=== PATIENT | female | born 1985 | race Caucasian/White ===

== ENCOUNTER 2017-11-15 13:11 | Emergency (ER) | payer BC, SELFPAY ==
[2017-11-15 13:31] VITALS: BP 126/72; PULSE 102; RESP 18; TEMP 36.9; O2SAT 97; BMI 23.9
--- NOTE | 2017-11-15 13:37 | HMH.EDUTC ---
[facility] [place] Disposition Clinical Impression: Cough in adult Disposition: Home, Self-Care Condition on Discharge: Good Additional Instructions: Rest increase fluids Follow-up with primary care this week if no improvement If symptoms worsen or do not improve return or be seen in the ER Prescriptions: Benzonatate [Tessalon Perle 100mg Cap] 100 mg PO BID 5 Days #10 cap Referrals: Néstor Ramirez MD [Primary Care Provider] - Time of Disposition: 14:11 Medical Decision Making Vital Signs: 11/15/17 13:31 Temperature 98.4 F Temperature Source Temporal Artery Scan Pulse Rate [Right Brachial] 102 H Respiratory Rate 18 Blood Pressure [Right Arm] 126/72 Blood Pressure Mean [Right Arm] 90 Blood Pressure Source [Right Arm] Automatic Cuff Blood Pressure Position [Right Arm] Sitting 02 Sat by Pulse Oximetry 97 Oxygen Delivery Method Room Air - Lab Data Lab Results 11/15/17 13:39: Influenza Type A Ag Negative, Influenza Type B Ag Negative - Fabián Inquiry Pt receiving controlled substance: No [facility] [place] HPI - General Chief complaint: Fever Stated complaint: roa.fever,cough Time Seen by Provider: 11/15/17 13:37 Mode of Arrival: Ambulatory Source of Information: Patient Limitations: No Limitations Description of Symptoms (Recalled from Triage Doc. by RN): C/O SORE THROAT AND BODYACHES X1 WEEK HEENT Symptoms (Recalled from RN notes): Yes (SORE THROAT) Resp Symptoms (Recalled from RN notes): No Skin Symptoms (Recalled from RN notes): No MS Symptoms (Recalled from RN notes): Yes (BODYACHES) Functional Status (Recalled from RN notes): N/A - History of Present Illness Provider Complaint: 32-year-old female presents for headache, cough, and fever for 1 week. - Related Data Previous Rx's Medication Instructions Recorded Benzonatate [Tessalon Perle 100mg 100 mg PO BID 5 Days #10 cap 11/15/17 Cap] Allergies Allergy/AdvReac Type Severity Reaction Status Date / Time Penicillins Allergy Mild I-HIVES Verified 11/15/17 13:34 cephalexin [From KEFLEX] Allergy Unknown Verified 11/15/17 13:34 codeine Allergy Unknown I-HIVES Verified 11/15/17 13:34 - Worker's Comp Is this a Worker's Comp case?: No [facility] History I have reviewed the patient's past medical history: Yes Medical History: Denies:: Cancer, Diabetes Mellitus Type 1, Diabetes Mellitus Type 2, MRSA Amputation: No - Social History Smoking Status: Current every day smoker Tobacco Type: cigarettes Alcohol Intake: never - Psychiatric History Expresses thoughts of harming self/others: None Suicide Plan Description: No Plan ROS Obtained: Yes All systems reviewed & no additional complaints - Constitutional Constitutional: Reports system reviewed and no additional complaints, except as docu, Reports fever(s) - Eyes Eyes: Reports system reviewed and no additional complaints, except as docu - ENT Ears, Nose, Mouth, and Throat: Reports system reviewed and no additional complaints, except as docu - Cardiovascular Cardiovascular: Reports system reviewed and no additional complaints, except as docu - Respiratory Respiratory: Yes system reviewed and no additional complaints, except as docu, Yes chest congestion, Yes cough - Gastrointestinal Gastrointestingal: Reports: system reviewed and no additional complaints, except as docu - Musculoskeletal Musculoskeletal: Reports system reviewed and no additional complaints, except as docu - Integumentary/Breasts Skin/Breast: Reports system reviewed and no additional complaints, except as docu - Neurologic Neurologic: Reports system reviewed and no additional complaints, except as docu - Endocrine Endocrine: Reports system reviewed and no additional complaints, except as docu - Hematologic/Lymphatic Henatologic/Lymphatic: Reports system reviewed and no additional complaints, except as docu - Allergic/Immunologic Allergic/Immunologic: Reports system reviewed and no additional complaints, except as
--- NOTE | 2017-11-15 13:40 | ED_ITS ---
[facility] [place] Impression: Cough in adult Disposition: Home, Self-Care Condition on Discharge: Good Additional Instructions: Rest increase fluids Follow-up with primary care this week if no improvement If symptoms worsen or do not improve return or be seen in the ER Prescriptions: Benzonatate [Tessalon Perle 100mg Cap] 100 mg PO BID 5 Days #10 cap Referrals: Néstor Ramirez MD [Primary Care Provider] - Time of Disposition: 14:11 Medical Decision Making Vital Signs: 11/15/17 13:31 Temperature 98.4 F Temperature Source Temporal Artery Scan Pulse Rate [Right Brachial] 102 H Respiratory Rate 18 Blood Pressure [Right Arm] 126/72 Blood Pressure Mean [Right Arm] 90 Blood Pressure Source [Right Arm] Automatic Cuff Blood Pressure Position [Right Arm] Sitting 02 Sat by Pulse Oximetry 97 Oxygen Delivery Method Room Air - Lab Data Lab Results 11/15/17 13:39: Influenza Type A Ag Negative, Influenza Type B Ag Negative - Fabián Inquiry Pt receiving controlled substance: No [facility] [place] - General Chief complaint: Fever Stated complaint: roa.fever,cough Time Seen by Provider: 11/15/17 13:37 Mode of Arrival: Ambulatory Source of Information: Patient Limitations: No Limitations Description of Symptoms (Recalled from Triage Doc. by RN): C/O SORE THROAT AND BODYACHES X1 WEEK HEENT Symptoms (Recalled from RN notes): Yes (SORE THROAT) Resp Symptoms (Recalled from RN notes): No Skin Symptoms (Recalled from RN notes): No MS Symptoms (Recalled from RN notes): Yes (BODYACHES) Functional Status (Recalled from RN notes): N/A - History of Present Illness Provider Complaint: 32-year-old female presents for headache, cough, and fever for 1 week. - Related Data Previous Rx's Medication Instructions Recorded Benzonatate [Tessalon Perle 100mg 100 mg PO BID 5 Days #10 cap 11/15/17 Cap] Allergies Allergy/AdvReac Type Severity Reaction Status Date / Time Penicillins Allergy Mild I-HIVES Verified 11/15/17 13:34 cephalexin [From KEFLEX] Allergy Unknown Verified 11/15/17 13:34 codeine Allergy Unknown I-HIVES Verified 11/15/17 13:34 - Worker's Comp Is this a Worker's Comp case?: No [facility] History I have reviewed the patient's past medical history: Yes Medical History: Denies:: Cancer, Diabetes Mellitus Type 1, Diabetes Mellitus Type 2, MRSA Amputation: No - Social History Smoking Status: Current every day smoker Tobacco Type: cigarettes Alcohol Intake: never - Psychiatric History Expresses thoughts of harming self/others: None Suicide Plan Description: No Plan ROS Obtained: Yes All systems reviewed & no additional complaints - Constitutional Constitutional: Reports system reviewed and no additional complaints, except as docu, Reports fever(s) - Eyes Eyes: Reports system reviewed and no additional complaints, except as docu - ENT Ears, Nose, Mouth, and Throat: Reports system reviewed and no additional complaints, except as docu - Cardiovascular Cardiovascular: Reports system reviewed and no additional complaints, except as docu - Respiratory Respiratory: Yes system reviewed and no additional complaints, except as docu, Yes chest congestion, Yes cough - Gastrointestinal Gastrointestingal: Reports: system reviewed and no additional complaints,
[2017-11-15 14:02] LABS: UTC Influenza A Antigen Negative (Negative); UTC Influenza B Antigen Negative (Negative)
[2017-11-15 14:20] VITALS: BP 123/76; PULSE 87; RESP 20; TEMP 36.6
== END 2017-11-15 14:20 | disposition home or self-care (01) ==
PROVIDERS: Emergency Provider Nurse Practitioner Family; Family Provider Emergency Medicine; PCP Emergency Medicine
DX: R05 Cough (principal); F17.210 Nicotine dependence, cigarettes, uncomplicated; Z88.0 Allergy status to penicillin; Z88.6 Allergy status to analgesic agent
CPT/HCPCS: 87804; 99202

== ENCOUNTER → 2018-07-02 11:42 | Outpatient (CLI) | payer BC, SELFPAY ==
--- NOTE | 2018-07-02 11:46 | XR_ITS ---
XR lumbar spine 2-3V Ordering Physician: Tran Frederick Patient Age: 33 years: Female HISTORY: ITS.REASON: pain Low back pain now for several years. TECHNIQUE: AP lateral view lumbar spine. COMPARISON :Five-view lumbar spine series 02/17/2017. FINDINGS No significant new findings. We again see the mild disc space narrowing at L5/S1 posteriorly. Similar to the previous study possibly incrementally more evident today. Pedicles, transverse processes intact.. SI joints unremarkable. IUD in place. The large amount stool seen throughout the right colon with stool and gas transverse colon. . IMPRESSION: ------- 1. No acute findings lumbar spine. There is Suggestion of minimal narrowing at posterior aspect of L5/S1 disc which may reflect early degenerative disc changes. This feature perhaps very very slightly more evident then 2017 on final review...
== END ==
PROVIDERS: PCP Emergency Medicine; Visit Provider Nurse Practitioner Family
DX: M54.5 Low back pain (principal)
CPT/HCPCS: 72100

== ENCOUNTER 2018-07-23 14:08 | Outpatient (RCR) | payer BC, SELFPAY ==
--- NOTE | 2018-07-23 15:05 | HMH.PTOPEV ---
PT Outpatient Evaluation Rehab PT Outpatient Evaluation Start: 07/23/18 14:47 Freq: Status: Active Protocol: Document 07/23/18 14:48 EMILIANOMARQUISE (Rec: 07/23/18 15:04 JORDI [id number]) Electronically Signed By Soy Tolentino, PT 07/23/18 14:48 Outpatient Therapy Subjective History Subjective History Patient is a 33 year old female presenting to outpatient PT with reports of chronic low back pain starting approximately 5 years ago after giving . She recieved a cortisone injection approximately 2 years ago which provided 1 year of total symptom relief. Most recent diagnostics indicate mild degenerative changes at L5/S1. Pt reports MRI 2 years ago that indicated L 4/5 disc bulges and SI OA, no reports to comfirm. Chief Complaint Pain Spasms Stiff Paresthesia Symptom Type Ache Throb Sharp Dull Stabbing Burning Numbness Tingling Shooting Symptoms Relieved By Rest/Positioning Symptoms Aggravated By Sitting Standing Bending/Stooping Physical Activity Twisting Walking Lifting Prior Functional Limitations Reaching Lifting Housework Driving Sleeping Standing Sitting Squatting Recreation Activity Walking Stairs Balance Bending/Stooping Current Functional Limitations Reaching Lifting Housework Driving
== END 2018-07-23 14:09 | disposition home or self-care (01) ==
LOC: PT 14:08
PROVIDERS: Visit Provider Nurse Practitioner Family
DX: M54.5 Low back pain (principal)
CPT/HCPCS: 97163

== ENCOUNTER → 2018-10-07 10:01 | Outpatient (CLI) | payer BC, SELFPAY ==
--- NOTE | 2018-10-07 10:04 | US_ITS ---
US transvaginal HISTORY: Pain after intercourse ITS.REASON: US T/V- Pelvic Pain IUD placement ORDERING PHYSICIAN: Heaven Rogers MD PATIENT AGE: 33 years Comparison: None FINDINGS: The uterus is 8.5 x 5 x 6 cm with a combined endometrial thickness of 6 mm. There is an ICD in place. No uterine mass apparent. Uterus is slightly anteverted The right ovary is 3 x 1.3 x 2.4 cm and contains a 1 cm cyst. The left ovary is 3.4 x 2.4 cm and contains 2 cysts the largest at 2.6 cm. No cul-de-sac fluid evident. IMPRESSION: IUD in place, small bilateral ovarian cysts
== END ==
PROVIDERS: PCP Emergency Medicine; Visit Provider Obstetrics & Gynecology
DX: R10.2 Pelvic and perineal pain (principal); Z97.5 Presence of (intrauterine) contraceptive device
CPT/HCPCS: 76830

== ENCOUNTER → 2018-10-19 14:01 | Outpatient (CLI) | payer BC, SELFPAY ==
[2018-10-19 16:28] LABS: Amphetamine/Metha Screen,Urine Negative ng/mL (<1000); Barbiturates Screen,Urine Negative ng/mL (<200); Benzodiazepines Screen,Urine Negative ng/mL (<200); Cannabinoid Screen,Urine Negative ng/mL (<50); Cocaine Screen,Urine Negative ng/mL (<300); Methadone Screen,Urine Negative ng/mL (<300); Opiate Screen,Urine Negative ng/mL (<300); Phencyclidine Screen,Urine Negative ng/mL (<25)
== END ==
PROVIDERS: Visit Provider Emergency Medicine
DX: Z79.899 Other long term (current) drug therapy (principal)
CPT/HCPCS: 80305

== ENCOUNTER → 2019-02-03 17:01 | Outpatient (CLI) | payer BC, SELFPAY ==
[2019-02-06 18:06] LABS: Neisseria gonorrhoeae, NAA Negative (Negative)
== END ==
PROVIDERS: Visit Provider Obstetrics & Gynecology
DX: Z72.51 High risk heterosexual behavior (principal)
CPT/HCPCS: 87491; 87591

== ENCOUNTER 2019-07-11 19:35 | Inpatient (IN) ==
[2019-07-11 19:58] LABS: Microscopic, Urine URINE MICROSCOPIC (MICROSCOPIC)
--- NOTE | 2019-07-11 20:01 | Emergency Department Note ---
ED Disposition Clinical Impression: Pancreatitis Qualifiers: Chronicity: acute Pancreatitis type: unspecified pancreatitis type Acute pancreatitis complication: no infection or necrosis Qualified Code(s): K85.90 - Acute pancreatitis without necrosis or infection, unspecified Disposition: Admitted as Observation Condition on Discharge: Fair Instructions: DI for Acute Abdomen Referrals: Néstor Ramirez MD [Primary Care Provider] - - Critical Care Critical Care Time: No Attestation: On , the high probability of a clinically significant, sudden or life threatening deterioration of the following system(s) required my full and direct attention, intervention and personal management. The time I documented below is in addition to time spent performing reported procedures but includes the following listed in this critical care notation. Medical Decision Making - Fabián Inquiry Pt receiving controlled substance: Yes Fabián was queried for this patient: No Reason not queried -: Emergent pt cond-no time Risks and benefits of using a controlled substance: were not discussed with pt by me Vital Signs: 07/11/19 19:48 Temperature 98.2 F Temperature Source Oral Pulse Rate [Left Radial] 93 H Respiratory Rate 12 Blood Pressure [Right Arm] 120/73 Blood Pressure Mean [Right Arm] 88 Blood Pressure Source [Right Arm] Automatic Cuff Blood Pressure Position [Right Arm] Sitting 02 Sat by Pulse Oximetry 98 Oxygen Delivery Method Room Air - Lab Data Lab Results 07/11/19 19:50: Urine Color Yellow, Urine Appearance Clear, Urine pH 6.5, Ur Specific [place] 1.025, Urine Protein Negative, Urine Glucose (UA) Negative, Urine Ketones Negative, Urine Blood Negative, Urine Nitrate Negative, Urine Bilirubin Negative, Urine Urobilinogen 0.2, Ur Leukocyte Esterase Negative, Urine WBC Occasional, Ur Squamous Epith Cells 20-50, Amorphous Sediment Trace 07/11/19 19:50: WBC 8.5, RBC 4.70, Hgb 14.3, Hct 44.4, MCV 94.5, MCH 30.4, MCHC 32.2, RDW 12.9, Plt Count 157, MPV 9.7, Neut % (Auto) 59.0, Lymph % (Auto) 32.2, Mckean % (Auto) 6.1, Eos % (Auto) 2.2, Baso % (Auto) 0.5, Neut # (Auto) 5.0, Lymph # (Auto) 2.7, Mckean # (Auto) 0.5, Eos # (Auto) 0.2, Baso # (Auto) 0.1 07/11/19 19:50: Urine HCG, Qual Negative 07/11/19 19:50: Sodium 141, Potassium 3.3 L, Chloride 104, Carbon Dioxide 27, Anion Gap 13.3, BUN 12, Creatinine 0.58, Estimated Creat Clear 109, Estimated GFR 120, Est GFR ( Amer) 145, Glucose 66 L, Calcium 8.5, Total Bilirubin 0.1 L, AST 10 L, ALT 14, Alkaline Phosphatase 91, Total Protein 7.2, Albumin 3.6, Globulin 3.6 H, Albumin/Globulin Ratio 1.0 L, Amylase 203 H, Lipase 923 H Result diagrams: 07/11/19 19:50 07/11/19 19:50 Orders (Tests/Meds): ED MEDICATIONS Generic Name Dose Route Start Last Admin Trade Name Freq PRN Reason Stop Dose Admin Sodium Chloride 1,000 mls @ 999 mls/hr 07/11/19 20:00 07/11/19 20:02 Sod Chlor 0.9% 1000ml Bag IV 07/11/19 21:00 999 mls/hr .Q1H1M CHAY Administration Sodium Chloride 8 ml 07/11/19 21:44 Sodium Chloride 0.9% 10ml Vial IV 08/10/19 21:43 NEEDED PRN dilute pepcid Discontinued Medications Generic Name Dose Route Start Last Admin Trade Name Freq PRN Reason Stop Dose Admin Famotidine 20 mg 07/11/19 21:44 07/11/19 21:45 Pepcid 20mg/2ml Vial IV 07/11/19 21:45 20 mg ONCE ONE Administration Ioversol 75 ml 07/11/19 20:39 07/11/19 20:40 Rad-Optiray 350 100ml Vial IV 07/11/19 20:40 75 ml ONCE ONE Administration Protocol Morphine Sulfate 4 mg 07/11/19 21:24 07/11/19 21:36 Morphine 4mg/Ml Syringe IV 07/11/19 21:25 4 mg ONCE ONE Administration Sodium Chloride 10 ml 07/11/19 20:39 07/11/19 20:40 Rad-Saline Flush 10ml Syringe IV 07/11/19 20:40 10 ml ONCE ONE Administration ORDERS Category Date Time Status CT abdomen pelvis w con Stat Cat Scan 07/11/19 19:54 Taken - CT Data CT Scan: Abdomen, Pelvis Time Received: 21:[address] Reviewed: Yes: I have viewed the radiologist's interpretation Findings Narrative: CT scan interpreted by ad radiologist. Faxed report received and reviewed: Pancreas no evidence of focal lesion or ductal dilatation. Gallbladder is contracted without evidence of radiopaque gallstones. No biliary ductal dilatation. No acute inflammatory process in the abdomen or pelvis. - Physician Consults Physician Consulted: Ector Time: 21:40 Reason -: Surgical Eval/Care Comment/Response: Patient states that she has too much pain to go home. Discussed case. He feels patient likely passed a gallstone and has residual pancreatitis. Does not feel she will need ERCP and feel she could be managed at this hospital. Additional Consult: Lila Time: 22:09 Reason -: Admission Comment/Response: Agrees to admit the patient to the hospital. We discussed the patient's clinical information, including history, exam, laboratory and radi ology results and ED course. Per hospital procedure, I will write temporary bridge inpatient orders on the patient. Specific orders requested by the admitting physician: Lactated Ringer's, pain medication, clear liquids General Adult HPI - General Chief complaint: Abdominal Pain Stated complaint: Stomach pain upper r side Time Seen by Provider: 07/11/19 20:01 Mode of Arrival: Ambulatory Limitations: No Limitations Description of Symptoms (Recalled from ER Triage Doc. by RN): c/o upper right abdomen pain for 5 days, increases with pain with food. - History of Present Illness HPI narrative: Right upper quadrant pain for 5 days. Initially intermittent but constant today. Made worse by eating, coughing, movement. No vomiting, diarrhea, constipation, fever, urinary symptoms. No previous similar symptoms. Her only prior abdominal surgery is section. She is a smoker. Occasional drinker. No history of gallbladder or liver problems. - Related Data Home Medications Medication Instructions Recorded Confirmed No Known Home Medications 07/11/19 07/11/19 Allergies Allergy/AdvReac Type Severity Reaction Status Date / Time Penicillins Allergy Mild I-HIVES Verified 02/03/19 14:23 cephalexin [From KEFLEX] Allergy Unknown Verified 02/03/19 14:23 codeine Allergy Unknown I-HIVES Verified 02/03/19 14:23 [facility] History - Hepatitis A Screen Drug use history?: No High risk sexual behaviors?: No History of sexually transmitted infection?: No Currently employed?: No Childcare worker?: No Do you have indoor plumbing?: Yes Do you have electricity?: Yes Attestation statement:: This patient has been screened for Hepatitis A risk factors. I have reviewed the patient's past medical history: Yes Medical History: Reports:: Anxiety, Depression Denies:: Cancer, Diabetes Mellitus Type 1, Diabetes Mellitus Type 2, MRSA, Seizures Other Medical History: Reports: Arthritis Other Surgeries: Yes: Amputation: No Fractures: No Comment: Right groin, left thumb - Social History Smoking Status: Current every day smoker Tobacco Type: cigarettes # Packs/Day (cigarettes): 1 Alcohol Intake: current Alcohol Intake Frequency:: holidays/special occasions only Substance Use Type: denies use Occupational Status: employed, student - Psychiatric History Pschychiatric History:: Reports:: Anxiety, Depression Family Hx:: Cancer Comment: Low blood sugar [employer]NE[employer] history: Spontaneous ROS Obtained: Yes All systems reviewed & no additional complaints - Constitutional Constitutional: Reports fever(s) - Cardiovascular Cardiovascular: Denies chest pain - Respiratory Respiratory: No dyspnea - Gastrointestinal Gastrointestingal: Reports: abdominal pain. Denies: constipation, diarrhea, dyspepsia, nausea, vomiting - Genitourinary Female Genitourinary: Denies difficulty voiding Physical Exam - General General appearance: alert, in no apparent distress - Head Head exam: atraumatic, normocephalic - Eye Eye exam: Present: normal appearance, EOMI. Absent: jaundice - ENT ENT exam: Present: mucous membranes moist - Neck Neck exam: Present: normal inspection, trachea midline - Chest Chest inspection: Present: normal inspection, symmetric chest wall rise - Respiratory Respiratory exam: Present: normal lung sounds bilaterally. Absent: respiratory distress - Cardiovascular Cardiovascular exam: Present: regular rate, normal rhythm, normal heart sounds - Abdominal Exam Abdominal exam: Present: soft, tenderness, normal bowel sounds. Absent: d istention, guarding, rebound, rigidity Abdominal tenderness: Present: RUQ Comment: Most tender right upper quadrant, mild tenderness remainder of abdomen - Extremities Exam Extremities exam: Present: normal inspection, full ROM - Neurological Exam Neurological exam: Present: alert, oriented X3 - Psychiatric Psychiatric exam: Present: normal affect, normal mood - Skin Skin exam: Present: warm, dry
[2019-07-11 20:07] LABS: Appearance,Urine CLEAR (Clear); Bilirubin,Urine Negative (Negative); Blood, Urine Negative (Negative); Color,Urine YELLOW (Yellow); Glucose,Urine (UA) Negative (Negative); Ketones,Urine Negative (Negative); Leukocyte Esterase,Urine Negative (Negative); PH,Urine 6.5 (5.0-8.5); Protein,Urine Negative (Negative); Specific Gravity, Urine 1.025 (1.005-1.030); Urobilinogen,Urine 0.2 EU/dl (0.2)
[2019-07-11 20:08] LABS: Basophils # 0.1 K/mm3 (0-0.2); Basophils % 0.5 % (0.1-2.0); Eosinophils # 0.2 K/mm3 (0.0-0.4); Eosinophils % 2.2 % (0.1-12.0); Hematocrit 44.4 % (37.0-47.0); Hemoglobin 14.3 g/dL (12.2-16.2); Lymphocytes # 2.7 K/mm3 (0.7-4.5); Lymphocytes % 32.2 % (10-50); Mean Corpuscular HGB Conc 32.2 g/dL (31.8-35.4); Mean Corpuscular Volume 94.5 fl (81-99); Mean Platelet Volume 9.7 fl (7.4-10.4); Monocytes # 0.5 K/mm3 (0.1-1.0); Monocytes % 6.1 % (1.7-9.3); Platelet Count 157 K/mm3 (142-424); Red Cell Distribution Width 12.9 % (11.5-17.5); White Blood Count 8.5 K/mm3 (4.8-10.8)
[2019-07-11 20:09] LABS: WBC,Urine Occasional #/hpf (0-3)
[2019-07-11 20:10] LABS: Amorphous Sediment,Urine Trace /lpf; Squamous Epithelial Cell,Urine 20-50 #/hpf (0-5)
[2019-07-11 20:13] LABS: Albumin Level 3.6 gm/dL (3.4-5.0); Anion Gap 13.3 mEq/L (5-15); Bilirubin,Total 0.1 mg/dL (0.2-1.0); Calcium 8.5 mg/dL (8.5-10.1); Globulin 3.6 gm/dl (1.3-3.2); Total Protein,Serum 7.2 gm/dL (6.4-8.2)
[2019-07-12 07:09] LABS: Anion Gap 9.8 mEq/L (5-15); Bilirubin,Total 0.1 mg/dL (0.2-1.0); Calcium 8.3 mg/dL (8.5-10.1)
--- NOTE | 2019-07-12 07:33 | Pharmacy Consult Notes ---
[facility] Pharmacy VTE Monitoring - Patient Demographics Admission date: 07/11/19 Report Date: 07/12/19 Time: 07:33 Allergies/Adverse Reactions: Patient Allergies Penicillins Allergy (Mild, Verified 02/03/19 14:23) I-HIVES cephalexin [From KEFLEX] Allergy (Unknown, Verified 02/03/19 14:23) codeine Allergy (Unknown, Verified 02/03/19 14:23) I-HIVES Height: 1.6 m Weight: 58.712 kg Patient Problems: Current Active Problems Pancreatitis (Acute) - VTE Risk Labs: VTE Related Lab Results Hgb 14.3 g/dL (12.2-16.2) 07/11/19 19:50 Hct 44.4 % (37.0-47.0) 07/11/19 19:50 Plt Count 157 K/mm3 (142-424) 07/11/19 19:50 BUN 13 mg/dL (7-18) 07/12/19 06:18 Creatinine 0.60 mg/dL (0.55-1.02) 07/12/19 06:18 Estimated Creat Clear 124 mL/min (50-200) 07/12/19 06:18 - Prophylaxis VTE Prophylaxis Ordered?: Yes Types of VTE Prophylaxis: TEDS Knee High Location of Applied Device: Bilateral Lower Extremeties - VTE Diagnosis Confirmed Treatment or plan recommended: Continue Current Treatment
--- NOTE | 2019-07-12 08:33 | History & Physical Report ---
*Admission Date: 07/11/19 *Chief complaint: Abdominal pain/nausea *History of present illness: 34-year-old white female with no significant past medical history who presented to the emergency department with significant burning abdominal pain. She reports that she is never had problems with her pancreas but that her sister and mother have had gallstone related pancreas issues. In the ER she was found to have elevated amylase and lipase, she was noted on CT scan to have evidence of acute pancreatitis with a contracted gallbladder. The diagnosis of gallstone pancreatitis with passed stone was entertained and patient was admitted to hospital for pain control and IV fluids. The patient this morning complains of both significant epigastric burning and also intense hunger, and bitterly complains that "I need something to eat." [facility] History I have reviewed the patient's past medical history: Yes Medical History: Reports:: Anxiety, Depression Denies:: Cancer, Diabetes Mellitus Type 1, Diabetes Mellitus Type 2, MRSA, Seizures *Have you ever received a pneumonia vaccine?: No *Have you received a flu vaccine this season?: No Other Medical History: Reports: Arthritis Other Surgeries: Yes: Amputation: No Fractures: No - *Social History Educational Level: Attended College Smoking Status: Current every day smoker Tobacco Type: cigarettes # Packs/Day (cigarettes): 1 Alcohol Intake: never Alcohol Intake Frequency:: holidays/special occasions only Substance Use Type: denies use *Occupational Status:: employed, student Housing: house *Travel in the last 8 weeks: None - Psychiatric History Pschychiatric History:: Reports:: Anxiety, Depression Family Hx:: Cancer, Hypertension, Alcoholism, Mental illness 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 Denies pulmonary or cardiac symptoms. GI as noted in HPI. Denies neuro or skin symptoms. Meds Home Medications Medication Instructions Recorded Confirmed Type No Known Home Medications 07/11/19 07/11/19 History Allergies Allergy/AdvReac Type Severity Reaction Status Date / Time Penicillins Allergy Mild I-HIVES Verified 02/03/19 14:23 cephalexin [From KEFLEX] Allergy Unknown Verified 02/03/19 14:23 codeine Allergy Unknown I-HIVES Verified 02/03/19 14:23 Exam Vital signs and Labs for Last 24 Hours: Temp Pulse Resp BP Pulse Ox 97.4 F L 84 17 119/64 98 07/12/19 08:16 07/12/19 08:16 07/12/19 08:16 07/12/19 08:16 07/12/19 08:16 Laboratory Results - last 24 hr 07/11/19 19:50: Urine Color Yellow, Urine Appearance Clear, Urine pH 6.5, Ur Specific [place] 1.025, Urine Protein Negative, Urine Glucose (UA) Negative, Urine Ketones Negative, Urine Blood Negative, Urine Nitrate Negative, Urine Bilirubin Negative, Urine Urobilinogen 0.2, Ur Leukocyte Esterase Negative, Uri ne WBC Occasional, Ur Squamous Epith Cells 20-50, Amorphous Sediment Trace 07/11/19 19:50: WBC 8.5, RBC 4.70, Hgb 14.3, Hct 44.4, MCV 94.5, MCH 30.4, MCHC 32.2, RDW 12.9, Plt Count 157, MPV 9.7, Neut % (Auto) 59.0, Lymph % (Auto) 32.2, [place] % (Auto) 6.1, Eos % (Auto) 2.2, Baso % (Auto) 0.5, Neut # (Auto) 5.0, Lymph # (Auto) 2.7, [place] # (Auto) 0.5, Eos # (Auto) 0.2, Baso # (Auto) 0.1 07/11/19 19:50: Urine HCG, Qual Negative 07/11/19 19:50: Sodium 141, Potassium 3.3 L, Chloride 104, Carbon Dioxide 27, Anion Gap 13.3, BUN 12, Creatinine 0.58, Estimated Creat Clear 109, Estimated GFR 120, Est GFR ( Amer) 145, Glucose 66 L, Calcium 8.5, Total Bilirubin 0.1 L, AST 10 L, ALT 14, Alkaline Phosphatase 91, Total Protein 7.2, Albumin 3.6, Globulin 3.6 H, Albumin/Globulin Ratio 1.0 L, Amylase 203 H, Lipase 923 H 07/12/19 06:18: Sodium 141, Potassium 3.8, Chloride 107, Carbon Dioxide 28, Anion Gap 9.8, BUN 13, Creatinine 0.60, Estimated Creat Clear 124, Estimated GFR 115, Est GFR ( Amer) 139, Glucose 103 D, Calcium 8.3 L, Total Bilirubin 0.1 L, AST 19 D, ALT 19 D, Alkaline Phosphatase 65, Total Protein 6.0 L, Albumin 3.0 L D, Globulin 3.0, Albumin/Globulin Ratio 1.0 L, Lipase 206 I & O for Last 24 hours: Intake & Output 07/09/19 07/10/19 07/11/19 07/12/19 11:59 11:59 11:59 11:59 Intake Total 1879 Balance 1879 Weight 129 lb 7 oz Narrative: Patient is awake. Alert. Fully dressed, sitting on the side of the bed, bitterly complaining about her pain and her hunger. Oriented x3. Oropharynx clear. No JVD. Lungs are clear bilaterally. Heart rate regular. Abdomen is soft, intense pain in the right upper quadrant on palpation with no rebound. No periocular flank bruising. No edema or clubbing in hands. Patient is wearing her boots and does not wish to remove them so this precludes lower extremity evaluation. Assessment and Plan (1) Pancreatitis Current visit: Yes Status: Acute Qualifiers: Chronicity: acute Pancreatitis type: unspecified pancreatitis type Acute pancreatitis complication: no infection or necrosis Qualified Code(s): K85.90 - Acute pancreatitis without necrosis or infection, unspecified Category: Medical Code(s): K85.90 - Acute pancreatitis without necrosis or infection, unspecified Overall seems to be clinically improving. Lipase levels improving. Check labs tomorrow morning. Ultrasound today. Surgery consult for high likelihood of gallstone induced pancreatitis. (2) Tobacco abuse Current visit: No Status: Acute Category: Medical Code(s): Z72.0 - Tobacco use Nicotine patch today.
--- NOTE | 2019-07-12 12:06 | Consult Report ---
*Admission Date: 07/11/19 *Reason for consult:: Pancreatitis *History of present illness: Patient is a 34-year-old female with no prior history of biliary or pancreatic problems. She states that for the past 5 days she has had pain in the epigastrium and right upper quadrant. She describes it as somewhat intermittent and sharp and burning. Yesterday it became more severe and more persistent. She presented to the emergency department yesterday evening. Laboratory studies revealed evidence of chemical pancreatitis. She underwent CT scan which revealed findings consistent with pancreatitis. It was felt that this may be biliary in origin. She denies any appreciable alcohol intake. She was admitted for inpatient management. She underwent gallbladder ultrasound this morning and the results are still pending. Surgical consultation was obtained. She continues to complain of severe pain. She is however tolerating a full liquid diet without issue. Review of Systems - Review of Systems Review of systems:: pertinent systems reviewed and negative unless documented below [facility] History Medical History: Reports:: Anxiety, Depression Denies:: Cancer, Diabetes Mellitus Type 1, Diabetes Mellitus Type 2, MRSA, Seizures *Have you ever received a pneumonia vaccine?: No *Have you received a flu vaccine this season?: No Other Medical History: Reports: Arthritis Other Surgeries: Yes: Amputation: No Fractures: No - *Social History Educational Level: Attended College Smoking Status: Current every day smoker Tobacco Type: cigarettes # Packs/Day (cigarettes): 1 Alcohol Intake: never Alcohol Intake Frequency:: holidays/special occasions only Substance Use Type: denies use *Occupational Status:: employed, student Housing: house *Travel in the last 8 weeks: None - Psychiatric History Pschychiatric History:: Reports:: Anxiety, Depression Family Hx:: Cancer, Hypertension, Alcoholism, Mental illness 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 Meds Home Medications Medication Instructions Recorded Confirmed Type No Known Home Medications 07/11/19 07/11/19 History Allergies Allergy/AdvReac Type Severity Reaction Status Date / Time Penicillins Allergy Mild I-HIVES Verified 02/03/19 14:23 cephalexin [From KEFLEX] Allergy Unknown Verified 02/03/19 14:23 codeine Allergy Unknown I-HIVES Verified 02/03/19 14:23 Exam Vital signs and Labs for Last 24 Hours: Temp Pulse Resp BP Pulse Ox 97.4 F L 84 17 119/64 98 07/12/19 08:16 10/21/19 08:16 07/12/19 08:16 07/12/19 08:16 07/12/19 08:16 Laboratory Results - last 24 hr 07/11/19 19:50: Urine Color Yellow, Urine Appearance Clear, Urine pH 6.5, Ur Specific [place] 1.025, Urine Protein Negative, Urine Glucose (UA) Negative, Urine Ketones Negative, Urine Blood Negative, Urine Nitrate Negative, Urine Bilirubin Negative, Urine Urobilinogen 0.2, Ur Leukocyte Esterase Negative, Urine WBC Occasional, Ur Squamous Epith Cells 20-50, Amorphous Sediment Trace 07/11/19 19:50: WBC 8.5, RBC 4.70, Hgb 14.3, Hct 44.4, MCV 94.5, MCH 30.4, MCHC 32.2, RDW 12.9, Plt Count 157, MPV 9.7, Neut % (Auto) 59.0, Lymph % (Auto) 32.2, [place] % (Auto) 6.1, Eos % (Auto) 2.2, Baso % (Auto) 0.5, Neut # (Auto) 5.0, Lymph # (Auto) 2.7, [place] # (Auto) 0.5, Eos # (Auto) 0.2, Baso # (Auto) 0.1 07/11/19 19:50: Urine HCG, Qual Negative 07/11/19 19:50: Sodium 141, Potassium 3.3 L, Chloride 104, Carbon Dioxide 27, Anion Gap 13.3, BUN 12, Creatinine 0.58, Estimated Creat Clear 109, Estimated GFR 120, Est GFR ( Amer) 145, Glucose 66 L, Calcium 8.5, Total Bilirubin 0.1 L, AST 10 L, ALT 14, Alkaline Phosphatase 91, Total Protein 7.2, Albumin 3.6, Globulin 3.6 H, Albumin/Globulin Ratio 1.0 L, Amylase 203 H, Lipase 923 H 07/12/19 06:18: Sodium 141, Potassium 3.8, Chloride 107, Carbon Dioxide 28, Anion Gap 9.8, BUN 13, Creatinine 0.60, Estimated Creat Clear 124, Estimated GFR 115, Est GFR ( Amer) 139, Glucose 103 D, Calcium 8.3 L, Total Bilirubin 0.1 L, AST 19 D, ALT 19 D, Alkaline Phosphatase 65, Total Protein 6.0 L, Albumin 3.0 L D, Globulin 3.0, Albumin/Globulin Ratio 1.0 L, Lipase 206 I & O for Last 24 hours: Intake & Output 07/10/19 07/11/19 07/12/19 07/13/19 11:59 11:59 11:59 11:59 Intake Total 1879 / 1879 Balance 1879 Weight 129 lb 7 oz - *Routine HEENT Exam Head: Present: normocephalic Eye: Present: EOMI, PERRL ENT: Present: mucous membranes moist - *Routine Neck Exam Present: supple. Absent: lymphadenopathy - *Routine Respiratory Exam Present: CTA bilaterally - *Routine Cardiovascular Exam Present: RRR - *Routine Abdominal Exam Present: soft, normoactive bowel sounds, tenderness - *Routine Extremities Exam Absent: cyanosis, clubbing, edema - *Routine Skin Exam Present: warm. Absent: rash - *Routine Neurological Exam Present: alert, oriented X3 - Detailed Eye Exam Eyelids: Left normal inspection Results - Labs 07/11/19 19:50 07/12/19 06:18 Laboratory Results - last 24 hr 07/11/19 19:50: Urine Color Yellow, Urine Appearance Clear, Urine pH 6.5, Ur Specific [place] 1.025, Urine Protein Negative, Urine Glucose (UA) Negative, Urine Ketones Negative, Urine Blood Negative, Urine Nitrate Negative, Urine Bilirubin Negative, Urine Urobilinogen 0.2, Ur Leukocyte Esterase Negative, Urine WBC Occasional, Ur Squamous Epith Cells 20-50, Amorphous Sediment Trace 07/11/19 19:50: WBC 8.5, RBC 4.70, Hgb 14.3, Hct 44.4, MCV 94.5, MCH 30.4, MCHC 32.2, RDW 12.9, Plt Count 157, MPV 9.7, Neut % (Auto) 59.0, Lymph % (Auto) 32.2, [place] % (Auto) 6.1, Eos % (Auto) 2.2, Baso % (Auto) 0.5, Neut # (Auto) 5.0, Lymph # (Auto) 2.7, [place] # (Auto) 0.5, Eos # (Auto) 0.2, Baso # (Auto) 0.1 07/11/19 19:50: Urine HCG, Qual Negative 07/11/19 19:50: Sodium 141, Potassium 3.3 L, Chloride 104, Carbon Dioxide 27, Anion Gap 13.3, BUN 12, Creatinine 0.58, Estimated Creat Clear 109, Estimated GFR 120, Est GFR ( Amer) 145, Glucose 66 L, Calcium 8.5, Total Bilirubin 0.1 L, AST 10 L, ALT 14, Alkaline Phosphatase 91, Total Protein 7.2, Albumin 3.6, Globulin 3.6 H, Albumin/Globulin Ratio 1.0 L, Amylase 203 H, Lipase 923 H 07/12/19 06:18: Sodium 141, Potassium 3.8, Chloride 107, Carbon Dioxide 28, Anion Gap 9.8, BUN 13, Creatinine 0.60, Estimated Creat Clear 124, Estimated GFR 115, Est GFR ( Amer) 139, Glucose 103 D, Calcium 8.3 L, Total Bilirubin 0.1 L, AST 19 D, ALT 19 D, Alkaline Phosphatase 65, Total Protein 6.0 L, Albumin 3.0 L D, Globulin 3.0, Albumin/Globulin Ratio 1.0 L, Lipase 206 Assessment and Plan (1) Pancreatitis Current visit: Yes Status: Acute Qualifiers: Chronicity: acute Pancreatitis type: unspecified pancreatitis type Acute pancreatitis complication: no infection or necrosis Qualified Code(s): K85.90 - Acute pancreatitis without necrosis or infection, unspecified Category: Medical Code(s): K85.90 - Acute pancreatitis without necrosis or infection, unspecified (2) Tobacco abuse Current visit: No Status: Acute Category: Medical Code(s): Z72.0 - Tobacco use - Assessment and plan all Dx Assessment and Plan for all problems:: Patient has pancreatitis which has shown improvement on laboratory studies. This may be biliary in origin. Her ultrasound is pending at the time of this dictation. If this shows evidence of debris or gallstones may plan for cholecystectomy with possible cholangiogram tomorrow to eliminate the source of pancreatitis.
--- NOTE | 2019-07-12 19:55 | Discharge Summary ---
General - General Admission date:: 07/11/19 Discharge date: 07/12/19 HPI HPI: 34-year-old white female with no significant past medical history who presented to the emergency department with significant burning abdominal pain. She reports that she is never had problems with her pancreas but that her sister and mother have had gallstone related pancreas issues. In the ER she was found to have elevated amylase and lipase, she was noted on CT scan to have evidence of acute pancreatitis with a contracted gallbladder. The diagnosis of gallstone pancreatitis with passed stone was entertained and patient was admitted to hospital for pain control and IV fluids. The patient this morning complains of both significant epigastric burning and also intense hunger, and bitterly complains that "I need something to eat." Hospital Course Hospital Course: Admitted. complained incessantly about pain rx. Demanded to eat - even though had "severe" abdominal pain. Demanded RN change because original nurse "had an attitude." Demanded to leave floor AMA because "had no cell service' and with her IV in place got into a waiting car in the parking lot and left campus. Police called given high risk of IV access potential for inapproprate access. No rx or f/u given her AMA d/c Objective Vital signs: Temp Pulse Resp BP Pulse Ox 97.4 F L 84 17 119/64 98 07/12/19 08:16 07/12/19 08:16 07/12/19 08:16 07/12/19 08:16 07/12/19 08:16 Narrative: LEFT AMA - exam not done Results Labs on day of discharge: Labs from last 24 hours 07/12/19 07/11/19 07/11/19 06:18 19:50 19:50 WBC RBC Hgb Hct MCV MCH MCHC RDW Plt Count MPV Neut % (Auto) Lymph % (Auto) [place] % (Auto) Eos % (Auto) Baso % (Auto) Neut # (Auto) Lymph # (Auto) [place] # (Auto) Eos # (Auto) Baso # (Auto) Sodium 141 141 Potassium 3.8 3.3 L Chloride 107 104 Carbon Dioxide 28 27 Anion Gap 9.8 13.3 BUN 13 12 Creatinine 0.60 0.58 Estimated Creat Clear 124 109 Estimated GFR 115 120 Est GFR ( Amer) 139 145 Glucose 103 D 66 L Calcium 8.3 L 8.5 Total Bilirubin 0.1 L 0.1 L AST 19 D 10 L ALT 19 D 14 Alkaline Phosphatase 65 91 Total Protein 6.0 L 7.2 Albumin 3.0 L D 3.6 Globulin 3.0 3.6 H Albumin/Globulin Ratio 1.0 L 1.0 L Amylase 203 H Lipase 206 923 H Urine Color Urine Appearance Urine pH Ur Specific [place] Urine Protein Urine Glucose (UA) Urine Ketones Urine Blood Urine Nitrate Urine Bilirubin Urine Urobilinogen Ur Leukocyte Esterase Urine WBC Ur Squamous Epith Cells Amorphous Sediment Urine HCG, Qual Negative 07/11/19 07/11/19 19:50 19:50 WBC 8.5 RBC 4.70 Hgb 14.3 Hct 44.4 MCV 94.5 MCH 30.4 MCHC 32.2 RDW 12.9 Plt Count 157 MPV 9.7 Neut % (Auto) 59.0 Lymph % (Auto) 32.2 [place] % (Auto) 6.1 Eos % (Auto) 2.2 Baso % (Auto) 0.5 Neut # (Auto) 5.0 Lymph # (Auto) 2.7 [place] # (Auto) 0.5 Eos # (Auto) 0.2 Baso # (Auto) 0.1 Sodium Potassium Chloride Carbon Dioxide Anion Gap BUN Creatinine Estimated Creat Clear Estimated GFR Est GFR ( Amer) Glucose Calcium Total Bilirubin AST ALT Alkaline Phosphatase Total Protein Albumin Globulin Albumin/Globulin Ratio Amylase Lipase Urine Color Yellow Urine Appearance Clear Urine pH 6.5 Ur Specific [place] 1.025 Urine Protein Negative Urine Glucose (UA) Negative Urine Ketones Negative Urine Blood Negative Urine Nitrate Negative Urine Bilirubin Negative Urine Urobilinogen 0.2 Ur Leukocyte Esterase Negative Urine WBC Occasional Ur Squamous Epith Cells 20-50 Amorphous Sediment Trace Urine HCG, Qual DS: Diagnosis - Discharge Diagnosis (1) Pancreatitis Status: Acute (2) Tobacco abuse Status: Acute Discharge Plan - Patient Discharge Instructions Patient Instructions: Acute Pancreatitis, DI for Pancreatitis - Follow up Plan Disposition: Left Against Medical Advice Home Medications: Home Medications Medication Instructions Recorded Confirmed Type No Known Home Medications 07/11/19 07/11/19 History Prescriptions/Medication Reconciliation: No Action No Known Home Medications - Problem Reconciliation Problems Reviewed?: Yes
== END 2019-07-12 12:50 | disposition left against medical advice (07) | DRG 440 ==
LOC: ER 19:35 → 2ND 19:35 → OBSVTOIN 22:50 → 2ND 22:54
PROVIDERS: ADMIT Internal Medicine Adolescent Medicine; ATTEND Internal Medicine Adolescent Medicine
CPT/HCPCS: 36415; 74177; 76700; 80053; 81001; 81025; 82150; 83690; 85025; 96365; 96375; 99283; J2405; Q9967

== ENCOUNTER → 2019-07-19 11:01 | Outpatient (CLI) | payer BC, SELFPAY ==
[2019-07-19 12:50] LABS: Alanine Aminotransferase 76 U/L (12-78); Albumin Level 3.4 gm/dL (3.4-5.0); Alkaline Phosphatase 69 U/L (46-116); Amylase 105 U/L (25-115); Anion Gap 12.9 mEq/L (5-15); Aspartate Amino Transferase 25 U/L (15-37); Bilirubin,Total 0.3 mg/dL (0.2-1.0); Blood Urea Nitrogen 14 mg/dL (7-18); Calcium 8.3 mg/dL (8.5-10.1); Carbon Dioxide 25 mmol/L (21.0-32.0); Chloride 105 mmol/L (98-107); Creatinine,Serum 0.54 mg/dL (0.55-1.02); Estimated Glomerular Filt Rate 130 ml/min (>60); GFR (African American) 157 ML/MIN (>60); Globulin 3.3 gm/dl (1.3-3.2); Glucose 74 mg/dL (74-106); Lipase 240 u/L (73-393); Potassium 3.9 mmoL/L (3.5-5.1); Sodium 139 mmol/L (136-145); Total Protein,Serum 6.7 gm/dL (6.4-8.2)
[2019-07-20 07:09] LABS: Hep A Ab, IgM Negative (Negative); Hepatitis B Core Antibody IgM Negative (Negative); Hepatitis B Surface Antigen Negative (Negative)
[2019-07-20 12:59] LABS: Hepatitis C Antibody 0.1 s/co ratio (0.0-0.9)
== END ==
PROVIDERS: Visit Provider Surgery
DX: K85.90 Acute pancreatitis without necrosis or infection, unspecified (principal)
CPT/HCPCS: 36415; 80053; 80074; 82150; 83690

== ENCOUNTER → 2019-07-19 12:41 | Outpatient (POV) | payer BC, SELFPAY | PROVIDERS: PCP Emergency Medicine; Referring Provider Surgery; Visit Provider Nurse Practitioner Family | DX: Z00.00 Encounter for general adult medical examination without abnormal findings (principal) ==

== ENCOUNTER → 2019-07-23 11:03 | Outpatient (CLI) | payer BC, SELFPAY ==
[2019-07-23 11:34] LABS: Basophils % 0.4 % (0.1-2.0); Eosinophils # 0.1 K/mm3 (0.0-0.4); Eosinophils % 1.4 % (0.1-12.0); Hematocrit 42.4 % (37.0-47.0); Hemoglobin 13.8 g/dL (12.2-16.2); Lymphocytes # 1.6 K/mm3 (0.7-4.5); Lymphocytes % 23.8 % (10-50); Mean Corpuscular HGB Conc 32.4 g/dL (31.8-35.4); Mean Corpuscular Hemoglobin 31.2 pg (27.0-31.2); Mean Corpuscular Volume 96.2 fl (81-99); Mean Platelet Volume 9.2 fl (7.4-10.4); Monocytes # 0.5 K/mm3 (0.1-1.0); Monocytes % 7.8 % (1.7-9.3); Neutrophils # 4.4 K/mm3 (1.8-7.8); Neutrophils % 66.6 % (37.0-80.0); Platelet Count 185 K/mm3 (142-424); Red Blood Count 4.41 M/mm3 (4.20-5.40); Red Cell Distribution Width 13.3 % (11.5-17.5); White Blood Count 6.6 K/mm3 (4.8-10.8)
[2019-07-23 13:03] LABS: HCG,Quantitative 859 mIU/mL
[2019-07-24 08:14] LABS: HIV Screen 4th Generation wRfx Non Reactive (Non Reactive)
[2019-07-24 18:49] LABS: Hepatitis B Surface Antigen Negative (Negative); Hepatitis C Antibody <0.1 s/co ratio (0.0-0.9); Rapid Plasma Reagin Ab Titer Non Reactive (NonRea<1:1); Rubella Antibodies, IgG 8.32 index (Immune >0.99)
== END ==
PROVIDERS: Visit Provider Obstetrics & Gynecology
DX: Z34.90 Encounter for supervision of normal pregnancy, unspecified, unspecified trimester (principal)
CPT/HCPCS: 36415; 84702; 85025; 86592; 86703; 86762; 86850; 87340; 87380; G0432

== ENCOUNTER → 2019-07-30 11:11 | Outpatient (CLI) | payer BC, SELFPAY ==
[2019-07-30 12:45] LABS: Alanine Aminotransferase 55 U/L (12-78); Albumin Level 3.5 gm/dL (3.4-5.0); Albumin/Globulin Ratio 1.1 (1.1-1.8); Alkaline Phosphatase 71 U/L (46-116); Anion Gap 13.3 mEq/L (5-15); Aspartate Amino Transferase 30 U/L (15-37); Bilirubin,Total 0.3 mg/dL (0.2-1.0); Blood Urea Nitrogen 17 mg/dL (7-18); Calcium 8.9 mg/dL (8.5-10.1); Carbon Dioxide 27 mmol/L (21.0-32.0); Chloride 105 mmol/L (98-107); Creatinine,Serum 0.52 mg/dL (0.55-1.02); Estimated Glomerular Filt Rate 136 ml/min (>60); GFR (African American) 164 ML/MIN (>60); Globulin 3.3 gm/dl (1.3-3.2); Glucose 94 mg/dL (74-106); HCG,Quantitative 7447 mIU/mL; Potassium 3.3 mmoL/L (3.5-5.1); Sodium 142 mmol/L (136-145); Total Protein,Serum 6.8 gm/dL (6.4-8.2)
[2019-07-31 18:19] LABS: HSV 1 IgG, Type Spec <0.91 index (0.00-0.90)
== END ==
PROVIDERS: Visit Provider Obstetrics & Gynecology
DX: Z72.51 High risk heterosexual behavior (principal); K85.90 Acute pancreatitis without necrosis or infection, unspecified; Z34.90 Encounter for supervision of normal pregnancy, unspecified, unspecified trimester
CPT/HCPCS: 36415; 80053; 84702; 86695; 86696; 86790

== ENCOUNTER → 2019-08-06 09:59 | Outpatient (CLI) | payer BC, SELFPAY ==
--- NOTE | 2019-08-06 10:02 | US_ITS ---
PROCEDURE: US OB TRANSVAGINAL CLINICAL INDICATION: US T/V OB- Bleeding back pain during COMPARISON: TRANVAG US transvaginal from 10/07/2018 FINDINGS: An intrauterine gestational sac is present with a pole with a crown-rump length of 0.64 cm correlating to gestational age of 6 weeks and 4 days. heart tones are present with an FHR of 124 bpm. Yolk sac is noted. IMPRESSION: Live IUP at 6 weeks 4 days. Estimated due date by Ultrasound is 03/27/2020 Dictated by: Lane Harvey MD 08/06/2019 11:10 Electronically signed by Lane Harvey MD in [facility] 08/06/2019 11:10
== END ==
PROVIDERS: Visit Provider Obstetrics & Gynecology
DX: M54.9 Dorsalgia, unspecified (principal); O46.90 Antepartum hemorrhage, unspecified, unspecified trimester; O99.89 Other specified diseases and conditions complicating pregnancy, childbirth and the puerperium
CPT/HCPCS: 76817

== ENCOUNTER 2020-09-14 16:12 | Emergency (ER) | payer BC, SELFPAY ==
[2020-09-14 16:15] VITALS: BP 128/83; PULSE 97; RESP 14; TEMP 36.6; O2SAT 100; BMI 19.3
--- NOTE | 2020-09-14 16:27 | HMH.EDGENADL ---
ED Disposition Condition on Discharge: Fair - Critical Care Critical Care Time: No <Evan Bolaños - Last Filed: 09/14/20 20:11> <Néstor Ramirez - Last Filed: 09/14/20 21:43> Clinical Impression: Acute psychosis Disposition: Xfer Psychiatric Hosp Referrals: PCP,No [Primary Care Provider] - Attestation: On 09/14/20, the high probability of a clinically significant, sudden or life threatening deterioration of the following system(s) required my full and direct attention, intervention and personal management. The time I documented below is in addition to time spent performing reported procedures but includes the following listed in this critical care notation. Medical Decision Making - Medical Records Medical records reviewed: Yes: I reviewed the patient's medical records. MR Comment: Collective notification shows emergency department visit to [facility] on September 03. 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 Inpatient admission September 04, 2020 at [facility]. Diagnoses include the above-noted overdose as well as acute viral hepatitis, anxiety disorder, unspecified mood disorder, paranoid schizophrenia, chronic pain. Recent gynecology visit to Dr. Rogers at this hospital on August 25. Diagnosed with trichomonas vaginalis. She was treated with doxycycline and Flagyl. Also started on Lexapro, but the patient says that she stopped taking that and then was put on Risperdal at [facility]. - Fabián Inquiry Pt receiving controlled substance: No - Lab Data Result diagrams: 09/14/20 16:58 09/14/20 16:58 <Evan Bolaños - Last Filed: 09/14/20 20:11> - Lab Data Result diagrams: 09/14/20 16:58 09/14/20 16:58 <Néstor Ramirez - Last Filed: 09/14/20 21:43> Vital Signs: 09/14/20 16:15 09/14/20 18:13 09/14/20 19:00 Temperature 97.9 F Temperature Source Oral Pulse Rate [Left Radial] 97 H 75 88 Respiratory Rate 14 Blood Pressure [Left Arm] 128/83 105/55 L 118/73 Blood Pressure Mean [Left Arm] 98 71 88 Blood Pressure Source [Left Arm] Automatic Cuff Automatic Cuff Automatic Cuff Blood Pressure Position [Left Arm] Sitting Sitting Sitting 02 Sat by Pulse Oximetry 100 100 100 Oxygen Delivery Method Room Air Room Air Room Air 09/14/20 19:30 09/14/20 20:00 Temperature Temperature Source Pulse Rate [Left Radial] 88 81 Respiratory Rate 14 14 Blood Pressure [Left Arm] 118/73 126/77 Blood Pressure Mean [Left Arm] 88 93 Blood Pressure Source [Left Arm] Automatic Cuff Automatic Cuff Blood Pressure Position [Left Arm] Sitting Sitting 02 Sat by Pulse Oximetry 100 100 Oxygen Delivery Method Room Air Room Air - Lab Data Lab Results 09/14/20 16:21: Urine HCG, Qual Negative 09/14/20 16:21: Urine Opiates Screen Negative, Urine Methadone Screen Negative, Ur Barbituates Screen Negative, Ur Phencyclidine Scrn Negative, Ur Amphetamines Screen Negative, U Benzodiazepines Scrn Negative, Urine Cocaine Screen Negative, U Marijuana (THC) Screen Negative 09/14/20 16:21: Urine Color Yellow, Urine Appearance Clear, Urine pH 6.0, Ur Specific [place] >= 1.030, Urine Protein Negative, Urine Glucose (UA) Negative, Urine Ketones Negative, Urine Blood Negative, Urine Nitrate Negative, Urine Bilirubin Negative, Urine Urobilinogen 0.2, Ur Leukocyte Esterase Negative, Urine WBC 3-5, Ur Squamous Epith Cells 5-10, Urine Bacteria 1+ 09/14/20 16:58: Salicylates < 1.0 L, Acetaminophen < 10 L 09/14/20 16:58: Plasma/Serum Alcohol < 10 09/14/20 16:58: WBC 5.5, RBC 5.00, Hgb 12.5, Hct 40.5, MCV 81.0, MCH 25.0 L, MCHC 30.9 L, RDW 17.4, Plt Count 210, MPV 10.1, Neut % (Auto) 53.9, Lymph % (Auto) 33.5, [place] % (Auto) 9.6 H, Eos % (Auto) 1.7, Baso % (Auto) 1.2, Neut # (Auto) 3.0, Lymph # (Auto) 1.9, [place] #
--- NOTE | 2020-09-14 16:53 | PC.NURSE ---
pt stated im afraid they have killed my daughter when asked pt stated her daughter noah is supposed to be at her dads house currently ut she is unsure if she is there. this nurse asked her if she would like to call her child's father to check on the child for her. pt gave permission to call gilson ellington her child's father and gave the number [phone] to reach him. this nurse attempted to call with no answer
[2020-09-14 17:07] LABS: Basophils # 0.1 K/mm3 (0-0.2); Basophils % 1.2 % (0.1-2.0); Eosinophils # 0.1 K/mm3 (0.0-0.4); Eosinophils % 1.7 % (0.1-12.0); Hematocrit 40.5 % (37.0-47.0); Hemoglobin 12.5 g/dL (12.2-16.2); Lymphocytes # 1.9 K/mm3 (0.7-4.5); Lymphocytes % 33.5 % (10-50); Mean Corpuscular HGB Conc 30.9 g/dL (31.8-35.4); Mean Platelet Volume 10.1 fl (7.4-10.4); Monocytes # 0.5 K/mm3 (0.1-1.0); Monocytes % 9.6 % (1.7-9.3); Neutrophils % 53.9 % (37.0-80.0); Platelet Count 210 K/mm3 (142-424); Red Cell Distribution Width 17.4 % (11.5-17.5); White Blood Count 5.5 K/mm3 (4.8-10.8)
[2020-09-14 17:07] LABS: Urine Pregnancy, HCG Qual. Negative (Negative)
--- NOTE | 2020-09-14 17:08 | PC.NURSE ---
Addendum entered by Che Lewis RN 09/14/20 17:40: spoke with Katerin Original Note: called [facility] about readmitting pt. they stated their intake nurse had stepped off the floor and to call back in 20 minutes.
--- NOTE | 2020-09-14 17:09 | PC.NURSE ---
contacted Luan Cueva who is listed as a contact for pt in the system (with pts permission) he was unable to provide any phone numbers for pts family. Pt also gave me ismael hdez number who is the father of pts daughters father, multiple attempts made at calling this phone number, states the call can not be completed.
[2020-09-14 17:10] LABS: Chloride 106 mmol/L (98-107); Potassium 3.5 mmoL/L (3.5-5.1); Sodium 140 mmol/L (136-145)
--- NOTE | 2020-09-14 17:12 | PC.NURSE ---
[facility] dispatch called requesting to have an officer speak with ER staff r/t trying to make contact with pts daughters father for a wellfare check on pts daughter r/t pt stating she has been hearing voices telling her to harm her daughter per her discussion with ER MD.
[2020-09-14 17:13] LABS: Alanine Aminotransferase 603 U/L (12-78); Albumin Level 4.4 g/dl (3.5-5.0); Albumin/Globulin Ratio 1.2 (1.1-1.8); Alkaline Phosphatase 111 U/L (38-126); Anion Gap 10.5 mEq/L (5-15); Aspartate Amino Transferase 53 U/L (14-36); Bilirubin,Total 0.6 mg/dl (0.2-1.3); Blood Urea Nitrogen 17 mg/dl (7-17); Calcium 9.3 mg/dl (8.4-10.2); Carbon Dioxide 27 mmol/L (22.0-30.0); Creatinine Clearance Estimated 107 mL/min (50-200); Estimated Glomerular Filt Rate 114 ml/min (>60); GFR (African American) 138 ML/MIN (>60); Globulin 3.6 g/dL (1.3-3.2); Glucose 126 mg/dl (74-100)
[2020-09-14 17:14] LABS: Acetaminophen < 10 ug/ml (10-30); Ethyl Alcohol < 10 mg/dl (0-10); Salicylate < 1.0 mg/dL (2.0-20.0)
[2020-09-14 17:18] LABS: Barbiturates Screen,Urine Negative ng/ml (<200)
[2020-09-14 17:19] LABS: Amphetamine/Metha Screen,Urine Negative ng/ml (<1000); Benzodiazepines Screen,Urine Negative ng/ml (<200)
[2020-09-14 17:20] LABS: Cannabinoid Screen,Urine Negative ng/ml (<50)
[2020-09-14 17:21] LABS: Cocaine Screen,Urine Negative ng/ml (<300); Methadone Screen,Urine Negative ng/ml (<300)
[2020-09-14 17:22] LABS: Opiate Screen,Urine Negative ng/ml (<300)
[2020-09-14 17:23] LABS: Microscopic, Urine URINE MICROSCOPIC (MICROSCOPIC); Phencyclidine Screen,Urine Negative ng/ml (<25)
[2020-09-14 17:24] LABS: Appearance,Urine CLEAR (Clear); Bilirubin,Urine Negative (Negative); Blood, Urine Negative (Negative); Color,Urine YELLOW (Yellow); Glucose,Urine (UA) Negative (Negative); Ketones,Urine Negative (Negative); Leukocyte Esterase,Urine Negative (Negative); Nitrate,Urine Negative (Negative); Protein,Urine Negative (Negative); Specific Gravity, Urine >= 1.030 (1.005-1.030); Urobilinogen,Urine 0.2 EU/dl (0.2)
[2020-09-14 17:32] LABS: Bacteria,Urine 1+ /lpf
--- NOTE | 2020-09-14 17:42 | PC.NURSE ---
Officer Swapnil with [employer] returned call and stated he was going to run pt's info and call us back.
[2020-09-14 17:43] LABS: Ammonia < 9 umol/L (9-30)
--- NOTE | 2020-09-14 17:50 | PC.NURSE ---
spoke with Jumana at [facility] intake. pt participating in phone consultation with intake nurse at this time
--- NOTE | 2020-09-14 17:50 | PC.NURSE ---
Officer Swapnil returned call stating he had the pt's address and that he would attempted to contact the pt's child's father at the number previously listed in the chart. Officer states he would call back when he had an update.
--- NOTE | 2020-09-14 18:11 | PC.NURSE ---
pts records faxed to [facility] at this time to give to their MD for evaluation
[2020-09-14 18:13] VITALS: BP 105/55; PULSE 75; O2SAT 100
--- NOTE | 2020-09-14 18:22 | PC.NURSE ---
quynh in intake at [facility] stated they did receive the pts information and sent it to the doctor for evaluation
[2020-09-14 18:30] LABS: Triiodothryronine (T3) Uptake 27 % (23.5-40.5)
[2020-09-14 18:31] LABS: Free Thyroxine Index 2.5 ug/dL (5.93-13.13); T4 (Thyroxine) 9.3 ug/dl (5.53-11.0)
[2020-09-14 18:45] LABS: Thyroid Stimulating Hormone 1.18 uIU/mL (0.465-4.68)
--- NOTE | 2020-09-14 18:50 | PC.NURSE ---
spoke with pts daughters father Bill Velazco at this time, he verified that pts daughter is with him for the past 2 weeks, states she is safe. Notified ER MD and pt of this conversation.
[2020-09-14 19:00] VITALS: BP 118/73; PULSE 88; O2SAT 100
--- NOTE | 2020-09-14 19:03 | PC.NURSE ---
suzie from [facility] had a few more questions for the pt. pt speaking with her now.
[2020-09-14 19:05] LABS: Coronavirus 19 IgG Antibody Negative (Negative); Coronavirus 19 IgM Antibody Negative (Negative)
--- NOTE | 2020-09-14 19:09 | PC.NURSE ---
spoke with suzie at [facility] who stated the pt doesnt does not meet criteria for admission because she does not report any SI /HI at this time and isnt having any commanding hallucinations
--- NOTE | 2020-09-14 19:13 | INFXCTL.NOTE ---
Allen on the phone with Jumana at the [facility] who stated to fax over pts records for review and they will do a phone assessment with pt
--- NOTE | 2020-09-14 19:18 | PC.NURSE ---
gave report to [facility] that pt was denied acceptance at [facility] and that her paperwork was sent to the [facility] and that they would be calling for a pt phone consultation
--- NOTE | 2020-09-14 19:20 | PC.NURSE ---
pts records faxed to the [place] and they stated they will be calling for a over the phone consultation
[2020-09-14 19:30] VITALS: BP 118/73; PULSE 88; RESP 14; O2SAT 100
--- NOTE | 2020-09-14 19:57 | PC.NURSE ---
Pt speaking to [facility] via phone at this time
[2020-09-14 20:00] VITALS: BP 126/77; PULSE 81; RESP 14; O2SAT 100
--- NOTE | 2020-09-14 20:16 | PC.NURSE ---
spoke to Jumana from the [facility], patient is refusing to speak to them any more and hung up, patient is also refusing to speak to RN
--- NOTE | 2020-09-14 20:38 | PC.NURSE ---
PATIENT STATES THAT SHE IS GOING TO LEAVE, POLICE NOTIFIED PER DR. BARRETO
--- NOTE | 2020-09-14 20:51 | PC.NURSE ---
Pt wanted to leave and told me the police are in her head and they are out to get her, Pt states the police won't let her eat , sleep, or take a shower. Pt wanted a scan to make the voices leave her head. I explained to the pt we are working on getting her the help she needs. Pt was given a Dr Pepper and a Ham sandwich. Food seemed to calm the pt, she got back in bed and agreed to stay until we can get her some help. [place] [employer] here to help keep the pt here and safe.
--- NOTE | 2020-09-14 21:28 | PC.NURSE ---
Pt became agitated when speaking to PD. Pt then walked out of ED w/ PD following pt. IV has been removed. PD reports pt got in her car and attempting to leave hospital.
--- NOTE | 2020-09-14 21:33 | PC.NURSE ---
PD was able to apprehend pt and will be transporting to [facility]. Paperwork has been notarized and emailed to Judge Morales.
--- NOTE | 2020-09-14 22:19 | PC.NURSE ---
has signed all documentation and pt is being discharged with PD for transport to [facility] at this time.
[2020-09-14 23:15] VITALS: BP 126/77; PULSE 81; RESP 14; TEMP 36.6; O2SAT 100
== END 2020-09-14 22:19 ==
PROVIDERS: Emergency Provider Emergency Medicine
DX: F32.9 Major depressive disorder, single episode, unspecified (principal); F23 Brief psychotic disorder; F41.8 Other specified anxiety disorders; Z79.899 Other long term (current) drug therapy; Z01.84 Encounter for antibody response examination; Z32.02 Encounter for pregnancy test, result negative
CPT/HCPCS: 80053; 80305; 80329; 81001; 81025; 82140; 84436; 84443; 84479; 85025; 86328; 99284

== ENCOUNTER 2022-02-18 17:27 | Emergency (ER) | payer BC, SELFPAY ==
[2022-02-18 17:40] VITALS: BP 106/63; PULSE 98; RESP 16; TEMP 36.8; O2SAT 98; BMI 25.7
--- NOTE | 2022-02-18 18:42 | HMH.EDUTC ---
[facility] Disposition Clinical Impression: Abscess of right leg, Cellulitis of right leg Disposition: Home, Self-Care Condition on Discharge: Good Instructions: Cellulitis, Boil Additional Instructions: Apply warm wet compresses to the affected sites three or four times per day for 15 minutes as tolerated. Take all the antibiotics as directed. Follow up with your regular doctor. Don't shave your legs until this is well healed. Wait at least 1 to 2 months. GO TO THE ER FOR ANY WORSENING SYMPTOMS OR CONCERNS Prescriptions: Sulfamethoxazole/Trimethoprim [Bactrim DS tablet] 1 each PO BID 10 Days #20 tab Transmission Status: Received by [facility] Mupirocin [Bactroban 2% Ointment 22gm tube] 1 applicatio TP TID 7 Days #1 gm Transmission Status: Received by [facility] clindamycin HCL [Cleocin HCl] 300 mg PO Q8H 10 Days #30 cap Transmission Status: Received by [facility] Referrals: Néstor Ramirez MD [Primary Care Provider] - Time of Disposition: 19:22 Medical Decision Making - Medical Records Medical records reviewed: No: I reviewed the patient's medical records. - Fabián Inquiry Pt receiving controlled substance: No Vital Signs: 02/18/22 17:40 02/18/22 18:55 02/18/22 19:33 Temperature 98.3 F 98.1 F 98.1 F Temperature Source Oral Oral Pulse Rate 89 Pulse Rate [Radial] 98 H 89 Respiratory Rate 16 19 19 Blood Pressure 118/74 Blood Pressure [Right Arm] 106/63 L 118/74 Blood Pressure Mean [Right Arm] 77 88 Blood Pressure Position [Right Arm] Sitting 02 Sat by Pulse Oximetry 98 100 Oxygen Delivery Method Room Air Orders (Tests/Meds): ED MEDICATIONS Discontinued Medications Generic Name Dose Route Start Last Admin Trade Name Freq PRN Reason Stop Dose Admin Trimethoprim/Sulfamethoxazole 1 each 02/18/22 19:22 02/18/22 19:32 Sulfa/Trimethoprim 1 Tablet PO 02/18/22 19:23 1 each ONCE ONE Administration [facility] HPI - General Stated complaint: Insect bit R Leg Time Seen by Provider: 02/18/22 18:42 Mode of Arrival: Ambulatory Source of Information: Patient Limitations: No Limitations Description of Symptoms (Recalled from Triage Doc. by RN): PT C/O ABSCESS TO RT LOWER LEG X 3 DAYS. PT STATES SHE TOOK 1 DOSE OF AMOX 500MG YESTERDAY AND 1 DOSE TO DAY PT STATES SHE ALSO TOOK 2 PERCOCET 5MG 1HR RN QUALITY WITH NO RELIEF OF PAIN - History of Present Illness Provider Complaint: She states that for the past 4 days she has had a painful red area on the top of her lower leg. She states there has been whitish drainage from an open area in its center. She denies any fever or chills. - Related Data Previous Rx's Medication Instructions Recorded prenat.vits,dolores,mcr-ggiw-cigtx 1 tab PO DAILY #30 tab 12/12/20 Mupirocin [Bactroban 2% Ointment 1 applicatio TP TID 7 Days #1 gm 02/18/22 22gm tube] Sulfamethoxazole/Trimethoprim 1 each PO BID 10 Days #20 tab 02/18/22 [Bactrim DS tablet] clindamycin HCL [Cleocin HCl] 300 mg PO Q8H 10 Days #30 cap 02/18/22 atomoxetine 60 mg capsule 60 mg PO DAILY #30 cap 02/19/22 brexpiprazole 2 mg tablet 2 mg PO DAILY #30 tab 02/19/22 hydroxyzine pamoate 50 mg capsule 50 mg PO QID PRN #120 cap 02/19/22 lumateperone 42 mg capsule 42 mg PO DAILY #30 cap 02/19/22 Allergies Allergy/AdvReac Type Severity Reaction Status Date / Time Penicillins Allergy Mild I-HIVES Verified 02/19/22 11:09 cephalexin [From KEFLEX] Allergy Unknown Verified 02/19/22 11:09 codeine Allergy Unknown I-HIVES Verified 02/19/22 11:09 [facility] History - Hepatitis A Screen Attestation statement:: This patient has been screened for Hepatitis A risk factors. I have reviewed the patient's past medical history: Yes Medical History: Reports:: Anxiety, Depression Denies:: Cancer, Diabetes Mellitus Type 1, Diabetes Mellitus Type 2, MRSA, Seizures Other Medical History: Reports: Arthritis Other Surgeries: Yes: , Other Amputation: No
[2022-02-18 18:55] VITALS: BP 118/74; PULSE 89; RESP 19; TEMP 36.7; O2SAT 100; BMI 25.2
[2022-02-18 19:33] VITALS: BP 118/74; PULSE 89; RESP 19; TEMP 36.7
== END 2022-02-18 19:40 | disposition home or self-care (01) ==
PROVIDERS: Emergency Provider Nurse Practitioner Family; PCP Emergency Medicine
DX: L02.415 Cutaneous abscess of right lower limb (principal); M19.90 Unspecified osteoarthritis, unspecified site; F32.A Depression, unspecified; F41.9 Anxiety disorder, unspecified; Z79.899 Other long term (current) drug therapy; Z88.0 Allergy status to penicillin; Z88.5 Allergy status to narcotic agent; Z88.8 Allergy status to other drugs, medicaments and biological substances; Z82.49 Family history of ischemic heart disease and other diseases of the circulatory system; Z80.1 Family history of malignant neoplasm of trachea, bronchus and lung; Z81.8 Family history of other mental and behavioral disorders; Z81.1 Family history of alcohol abuse and dependence
CPT/HCPCS: 87070; 87077; 87186; 87205; 99213; G0463

== ENCOUNTER → 2022-02-21 06:22 | Outpatient (CLI) | payer BC, SELFPAY | LOC: LAB 06:22 → LAB.DROPOF 06:25 | PROVIDERS: PCP Emergency Medicine; Visit Provider Emergency Medicine | DX: L02.415 Cutaneous abscess of right lower limb (principal); L03.115 Cellulitis of right lower limb | CPT/HCPCS: 87070; 87186; 87205 ==

== ENCOUNTER 2023-05-19 18:29 | Emergency (ER) | payer BC, SELFPAY ==
[2023-05-19 18:31] VITALS: BP 148/99; PULSE 104; RESP 18; O2SAT 97; BMI 25.6
--- NOTE | 2023-05-19 19:13 | ECG_ITS ---
APPROVED REPORT Exam: Resting ECG HR:86 bpm ECG Measurements Heart Rate 86 AXES RI 161 P 68 QRSd 95 QRS 23 QT 359 T 58 QTc 402 Conclusion SINUS RHYTHM WITH MARKED SINUS ARRHYTHMIA POSSIBLE RIGHT VENTRICULAR CONDUCTION DELAY [RSR (QR) IN V1/V2] BORDERLINE ECG UNCONFIRMED REPORT Electronically signed by : Keegan Mcdaniels MD 05/20/2023 17:17:28
--- NOTE | 2023-05-19 19:15 | PC.NURSE ---
Patient's personal belongings removed from patient to the nurses station placed into a paper gown. Patient not on one to one observation; patient in sight from nurses station. Cords removed from room.
--- NOTE | 2023-05-19 19:17 | HMH.EDGENADL ---
Discharge Plan Disposition Patient Disposition: Xfer Psychiatric Hosp Prescriptions Prescriptions: No Action prenat.vits,dolores,[id number]-maqgr Tablet 1 tab PO DAILY Qty: 30 11RF mupirocin 2 % ointment 1 applic TP TID 0 Days Qty: 22 10RF hydroxyzine pamoate [Vistaril] 50 mg capsule 50 mg PO QID PRN (Reason: anxiety) Qty: 120 0RF Lybalvi 5-10 mg tablet 1 tab PO DAILY Qty: 30 1RF Referrals Follow up/Referrals: Provider,Referral, [Primary Care Provider] - See instructions Clinical Impressions Clinical Impression: Acute psychosis Discharge ED Provider: Jsutin Wong General Adult HPI <Justin Wong MD - Last Filed: 05/19/23 22:58> General Chief complaint: Psychiatric Symptoms Stated complaint: mental health Time Seen by Provider: 05/19/23 18:39 Mode of Arrival: Ambulatory Source of Information: Patient Limitations: No Limitations Description of Symptoms (Recalled from ER Triage Doc. by RN): Patient reports she wants to go to [facility]. Patient reports she cut her left wrist in attempt to harm herself. Patient reports she hasnt slept in 4-5 days, hearing voices and having bad visions. History of Present Illness HPI narrative: This is a 38-year-old female with history of paranoid schizophrenia presenting with I need help. Patient states I have a lot of psych problems. She states that for the past 5 or 6 days, she has not been able to sleep, eat, or live her normal life because she has been hearing voices that are telling her to hurt herself. She states that the voices state that there is a police, they will hurt her if she does not hurt herself. She denies thoughts of hurting others. Patient tried cutting her wrists a couple times over the past 4 days, but is still having auditory hallucinations. Denies any visual hallucinations or tactile hallucinations. No current thoughts of hurting herself or others. Related Data Previous Rx's Medication Instructions Recorded prenat.vits,dolores,lke-icbq-pwvsi 1 tab PO DAILY #30 tabs 12/12/20 hydroxyzine pamoate 50 mg capsule 50 mg PO QID PRN anxiety #120 caps 02/19/22 (Vistaril) mupirocin 2 % topical ointment 1 applic topical TID 0 days #22 03/01/22 grams olanzapine 5 mg-samidorphan 10 mg 1 tab PO DAILY #30 tabs 05/17/22 tablet (Lybalvi) Allergies Allergy/AdvReac Type Severity Reaction Status Date / Time Penicillins Allergy Mild I-HIVES Verified 05/17/22 11:27 cephalexin [From KEFLEX] Allergy Unknown Verified 05/17/22 11:27 codeine Allergy Unknown I-HIVES Verified 05/17/22 11:27 PFSH <Justin Wong MD - Last Filed: 05/19/23 22:58> [facility] Disclaimer: The information contained in this section may have been updated after the patient was seen, as this information can be updated by other users. Medical History (Updated 05/19/23 @ 22:58 by Justin Wong MD) Paranoid schizophrenia Social History (Updated 05/17/22 @ 13:08 by Heaven Duff APRN) Smoking Status: Current every day smoker tobacco type: cigarettes packs per day: 1 second hand exposure: No alcohol intake: never substance use type: marijuana, heroin and methamphetamine current occupational status: other Travel in the last 8 weeks: None housing: house number of children: 2 caffeine: Yes <Justin Wong MD - Last Filed: 05/19/23 22:58> ROS Obtained: Yes All systems reviewed & no additional complaints except as documented Physical Exam <Justin Wong MD - Last Filed: 05/19/23 22:58> General General appearance: alert, in no apparent distress and other ( ) Head Head exam: atraumatic and normocephalic Eye Eye exam: Present normal appearance, PERRL and EOMI ENT ENT exam: Present mucous membranes moist Neck Neck exam: Present normal inspection, full ROM and trachea midline Respiratory Respiratory exam: Absent respiratory distress, wheezes, stridor, accessory muscle use or prolonged expiratory phase Cardiovascular Cardiovascular exam: Present regul
--- NOTE | 2023-05-19 19:47 | PC.NURSE ---
Rounded on patient
[2023-05-19 19:53] LABS: Microscopic, Urine URINE MICROSCOPIC (MICROSCOPIC)
[2023-05-19 20:03] LABS: Basophils # 0.1 K/mm3 (0-0.2); Basophils % 0.5 % (0.1-2.0); Eosinophils # 0.1 K/mm3 (0.0-0.4); Eosinophils % 1.1 % (0.1-12.0); Hematocrit 51.1 % (37.0-47.0); Hemoglobin 16.9 g/dL (12.2-16.2); Lymphocytes # 2.5 K/mm3 (0.7-4.5); Lymphocytes % 19.8 % (10-50); Mean Corpuscular HGB Conc 33.1 g/dL (31.8-35.4); Mean Corpuscular Hemoglobin 29.9 pg (27.0-31.2); Mean Corpuscular Volume 90.3 fl (81-99); Mean Platelet Volume 10.8 fl (7.4-10.4); Monocytes # 0.7 K/mm3 (0.1-1.0); Monocytes % 5.9 % (1.7-9.3); Neutrophils # 9.1 K/mm3 (1.8-7.8); Neutrophils % 72.7 % (37.0-80.0); Platelet Count 227 K/mm3 (142-424); Red Blood Count 5.66 M/mm3 (4.20-5.40); Red Cell Distribution Width 13.3 % (11.5-17.5); White Blood Count 12.5 K/mm3 (4.8-10.8)
--- NOTE | 2023-05-19 20:05 | PC.NURSE ---
MD mcneil for PO. Dietary called for regular diet tray.
[2023-05-19 20:10] LABS: Chloride 104 mmol/L (98-107); Potassium 3.8 mmoL/L (3.5-5.1); Sodium 142 mmol/L (136-145)
[2023-05-19 20:13] LABS: Alanine Aminotransferase 20 U/L (12-78); Albumin Level 4.8 g/dl (3.5-5.0); Albumin/Globulin Ratio 1.1 (1.1-1.8); Alkaline Phosphatase 93 U/L (38-126); Anion Gap 18.8 mEq/L (5-15); Aspartate Amino Transferase 34 U/L (14-36); Bilirubin,Total 0.9 mg/dl (0.2-1.3); Blood Urea Nitrogen 18 mg/dl (7-17); Calcium 9.7 mg/dl (8.4-10.2); Carbon Dioxide 23 mmol/L (22.0-30.0); Creatinine Clearance Estimated 129 mL/min (50-200); Estimated Glomerular Filt Rate 112 ml/min (>60); GFR (African American) 136 ML/MIN (>60); Globulin 4.2 g/dL (1.3-3.2); Glucose 99 mg/dl (74-100)
[2023-05-19 20:14] LABS: Appearance,Urine CLEAR (Clear); Blood, Urine Negative (Negative); Color,Urine YELLOW (Yellow); Glucose,Urine (UA) Negative (Negative); Ketones,Urine 2+ (Negative); Leukocyte Esterase,Urine TRACE (Negative); Nitrate,Urine Negative (Negative); Protein,Urine 1+ (Negative); Specific Gravity, Urine 1.025 (1.005-1.030)
--- NOTE | 2023-05-19 20:15 | PC.NURSE ---
Dietary provided sandwich and chips to patient
[2023-05-19 20:16] LABS: Acetaminophen < 10 ug/ml (10-30); Salicylate < 1.0 mg/dL (2.0-20.0)
[2023-05-19 20:17] LABS: Urine Pregnancy, HCG Qual. Negative (Negative)
--- NOTE | 2023-05-19 20:17 | PC.NURSE ---
patient walked to bathroom, given blanket and pillow
[2023-05-19 20:18] LABS: Bilirubin,Urine 1+ (Negative)
[2023-05-19 20:30] LABS: T4 (Thyroxine) 13.9 ug/dl (5.53-11.0)
[2023-05-19 20:34] LABS: Amphetamine/Metha Screen,Urine Negative ng/ml (<1000)
[2023-05-19 20:35] LABS: Barbiturates Screen,Urine Negative ng/ml (<200); Benzodiazepines Screen,Urine Negative ng/ml (<200)
[2023-05-19 20:36] LABS: Cannabinoid Screen,Urine Negative ng/ml (<50)
[2023-05-19 20:37] LABS: Cocaine Screen,Urine Negative ng/ml (<300); Methadone Screen,Urine Negative ng/ml (<300)
[2023-05-19 20:38] LABS: Opiate Screen,Urine Negative ng/ml (<300)
[2023-05-19 20:39] LABS: Phencyclidine Screen,Urine Negative ng/ml (<25)
[2023-05-19 20:46] LABS: Bacteria,Urine Trace /lpf
--- NOTE | 2023-05-19 20:53 | PC.NURSE ---
Néstor from intake at [facility] has been notified of voluntary hold. Stated they will call back
--- NOTE | 2023-05-19 21:18 | PC.NURSE ---
Attempted to call the [facility] for signature on . No answer; will call back
[2023-05-19 21:21] LABS: Thyroid Stimulating Hormone 1.89 uIU/mL (0.465-4.68)
--- NOTE | 2023-05-19 21:21 | PC.NURSE ---
call received from bernadette guardado rn @ [facility]; updated on status of intake assessment. Care plan will continue.
[2023-05-19 22:22] LABS: Ethyl Alcohol < 10 mg/dl (0-10)
--- NOTE | 2023-05-19 22:22 | PC.NURSE ---
Shakir Morrison and [facility] paper work faxed to facilities for eval.
[2023-05-19 22:27] VITALS: BP 97/50; PULSE 64; RESP 16; O2SAT 100
--- NOTE | 2023-05-19 22:29 | PC.NURSE ---
Rounded on patient; patient currently resting at this time. Patient within view from nurses station
--- NOTE | 2023-05-19 22:35 | PC.NURSE ---
callback received from isi fleming at [facility]. isabel nagel on phone at this time.
--- NOTE | 2023-05-19 23:49 | PC.NURSE ---
[facility] has been called to verify they received all fax sheets for placement evaluation. [facility] states everything has been received they are backed up and will be reaching out to us as soon as possible
--- NOTE | 2023-05-20 00:08 | PC.NURSE ---
Evaluation with Herbie matson [facility]
[2023-05-20 00:30] VITALS: BP 114/77; PULSE 62; RESP 16; O2SAT 97
--- NOTE | 2023-05-20 01:00 | PC.NURSE ---
Report handed off to group managing director
--- NOTE | 2023-05-20 02:05 | PC.NURSE ---
patient resting quietly at this time, no needs
--- NOTE | 2023-05-20 02:15 | PC.NURSE ---
Tracee Tomas called and stated they were trying to make arrangements to transport pt to [facility].
[2023-05-20 02:41] VITALS: BP 122/71; PULSE 71; RESP 16; TEMP 36.8; O2SAT 98
--- NOTE | 2023-05-20 02:43 | PC.NURSE ---
officer arrives at bedside
== END 2023-05-20 02:42 ==
PROVIDERS: Emergency Provider Emergency Medicine
DX: F20.0 Paranoid schizophrenia (principal); R45.88 Nonsuicidal self-harm; F17.210 Nicotine dependence, cigarettes, uncomplicated
CPT/HCPCS: 80053; 80305; 80329; 81001; 81025; 84436; 84443; 85025; 93005; 96361; 96374; 96376; 99285